=== PATIENT | male | born 1990 | race Asian ===

== ENCOUNTER 2020-07-24 08:47 | Emergency (ER) | payer OTHER ==
[~2020-07-24] VITALS: Ht 182.9 cm; Wt 78.1 kg
--- NOTE | 2020-07-24 09:14 | REP ---
INDICATION: twisting injury COMPARISON: None. TECHNIQUE: Axial noncontrast images from the skull base to the thoracic inlet with coronal and sagittal re-formations This CT examination was performed using the following dose reduction techniques: Automated exposure control, adjustment of mA and/or kv according to the patient's size, and use of iterative reconstruction technique. FINDINGS: Normal alignment is maintained. Cervical vertebral bodies including transverse processes and spinous processes are intact and there is no evidence for acute fracture / compression injury or subluxation. Spinal canal is patent. Posterior elements are intact. Paravertebral soft tissues are normal. IMPRESSION: Normal noncontrast cervical spine CT. No evidence for acute pathology or trauma/injury. <Electronically signed by René Dillon > 07/24/20 [id number]
[2020-07-24] MEDS ORDERED: KETOROLAC 30 MG/ML 1ML VIAL IM ONE (09:45)
[2020-07-24] MEDS ORDERED: ACETAMINOPHEN 325 MG TAB PO ONE (09:45)
[2020-07-24] MEDS ORDERED: CYCL-707 PO (09:52)
[2020-07-24] MEDS ORDERED: NAPR-837 PO (09:52)
[2020-07-24 10:10] VITALS: BP 119/64
== END 2020-07-24 10:12 | disposition home or self-care (01) ==
LOC: M ED 08:47
DX: S13.4XXA Sprain of ligaments of cervical spine, initial encounter (principal); X50.0XXA Overexertion from strenuous movement or load, initial encounter; Y92.9 Unspecified place or not applicable; Y93.9 Activity, unspecified; Y99.1 Military activity
CPT/HCPCS: 72125; 96372; 99284; J1885